=== PATIENT | female | born 1975 | race African-American/Black ===

== ENCOUNTER 2017-06-17 08:23 | Inpatient (IN) ==
[2017-06-17] MEDS ORDERED: ALBUTEROL 2.5 MG/3 ML NEB RESP TX PRN (09:44)
[2017-06-17] MEDS ORDERED: ONDANSETRON 4 MG/2 ML VIAL IV PRN (09:44)
[2017-06-17] MEDS ORDERED: SODIUM CHLORIDE 0.45% 1,000 ML IV SCH (10:00)
[2017-06-17] MEDS ORDERED: PANTOPRAZOLE 40 MG VIAL IV SCH (10:00)
[2017-06-17] MEDS ORDERED: CIPROFLOXACIN INJ 400 MG in PREMIX 1 EACH IV SCH (12:00)
[2017-06-17] MEDS ORDERED: HEPARIN 5,000 UNIT/1 ML VIAL IV ONE (12:29)
[2017-06-17] MEDS ORDERED: niCARdipine INJ 25 MG in SODIUM CHLORIDE 0.9% 240 ML IV SCH (13:30)
[2017-06-17 16:56] VITALS: BP 143/95
== END 2017-06-17 14:45 | disposition hospice, home (50) | DRG 45 ==
LOC: EDUNIT# → EDBD → N.ED 08:23 → N.EDINP 09:02 → SUATTDRO 09:02 → N.CC 10:35
PROVIDERS: ADMIT Internal Medicine; ATTEND Hospitalist

== ENCOUNTER 2017-06-28 18:30 | Inpatient (IN) ==
[2017-06-29] MEDS ORDERED: ACETAMINOPHEN 325 MG TABLET PO PRN (16:27)
[2017-06-29] MEDS ORDERED: ONDANSETRON 4 MG/2 ML VIAL IV PRN (16:27)
[2017-06-29 17:07] LABS: Basophils # 0.1 10*3/uL (0.0-0.2); Basophils % 0.4 % (0.0-0.8); Eosinophils % 0.2 % (0.00-10.9); Hematocrit 29.9 VOL% (35.7-47.0); Hemoglobin 10.3 GM/DL (12.0-16.0); Immature Granulocytes % 0.6 %; Immature Granulocytes Absolute 0.07 #; Lymphocytes # 1.3 10*3/uL (1.4-4.0); Lymphocytes % 11.2 % (21.3-54.2); Mean Corpuscular HGB Conc 34.4 GM/DL (32-36); Mean Corpuscular Hemoglobin 28 PG (27-34); Mean Corpuscular Volume 80.6 FL (87-102); Mean Platelet Volume 12.6 FL (9.6-12.0); Monocytes % 8.7 % (1.7-12.7); Neutrophils # 9.1 10*3/uL (1.4-7.4); Neutrophils % 78.9 % (38.7-73.9); Platelet Count 384 T/CUMM (130-400); Red Blood Count 3.71 MC/CUMM (3.8-5.5); Red Cell Distribution Width 12.8 % (9.3-17.3); White Blood Count 11.6 T/CUMM (4-12)
[2017-06-29 17:31] LABS: Calcium 8.8 MG/DL (8.5-10.1); Osmolality,Calculated 272.8 MOS/KG (273-304); Potassium 4.3 MMOL/L (3.5-5.1)
[2017-06-29 17:34] LABS: Risk Ratio 3.41; VLDL CHOLESTEROL 13.2 MG/DL
[2017-06-29] MEDS: SODIUM CHLORIDE 0.9% 1,000 ML IV SCH (18:23)
[2017-06-30 08:17] LABS: Basophils % 0.4 % (0.0-0.8); Eosinophils % 0.1 % (0.00-10.9); Hematocrit 29.2 VOL% (35.7-47.0); Hemoglobin 10.1 GM/DL (12.0-16.0); Immature Granulocytes % 0.8 %; Immature Granulocytes Absolute 0.08 #; Lymphocytes # 1.5 10*3/uL (1.4-4.0); Mean Corpuscular HGB Conc 34.6 GM/DL (32-36); Mean Corpuscular Hemoglobin 28 PG (27-34); Mean Corpuscular Volume 80.2 FL (87-102); Mean Platelet Volume 12.7 FL (9.6-12.0); Monocytes # 0.9 10*3/uL (0.11-0.8); Monocytes % 8.5 % (1.7-12.7); Neutrophils # 7.9 10*3/uL (1.4-7.4); Neutrophils % 76.2 % (38.7-73.9); Platelet Count 400 T/CUMM (130-400); Red Blood Count 3.64 MC/CUMM (3.8-5.5); White Blood Count 10.4 T/CUMM (4-12)
[2017-06-30 08:39] LABS: Calcium 8.8 MG/DL (8.5-10.1); Osmolality,Calculated 277.5 MOS/KG (273-304); Potassium 4.2 MMOL/L (3.5-5.1)
[2017-06-30] MEDS: PANTOPRAZOLE 40 MG TABLET PO SCH (08:46)
[2017-06-30] MEDS: ASPIRIN EC 81 MG TABLET PO SCH (08:46)
[2017-06-30 08:52] LABS: Free T4 (Free Thyroxine) 1.05 NG/DL (0.76-1.46); Thyroid Stimulating Hormone 0.525 uIU/ml (0.358-3.74)
[2017-06-30] MEDS: SODIUM CHLORIDE 0.9% 1,000 ML IV SCH (16:48)
[2017-06-30] MEDS: ATORVASTATIN 40 MG TABLET PO SCH (21:44)
[2017-07-01] MEDS: ASPIRIN EC 81 MG TABLET PO SCH (08:57)
[2017-07-01] MEDS: PANTOPRAZOLE 40 MG TABLET PO SCH (08:57)
[2017-07-01] MEDS: SODIUM CHLORIDE 0.9% 1,000 ML IV SCH (11:47)
[2017-07-01] MEDS: ATORVASTATIN 40 MG TABLET PO SCH (20:38)
[2017-07-02 05:35] LABS: Basophils % 0.4 % (0.0-0.8); Eosinophils % 0.2 % (0.00-10.9); Hematocrit 29.5 VOL% (35.7-47.0); Hemoglobin 9.9 GM/DL (12.0-16.0); Immature Granulocytes % 0.3 %; Immature Granulocytes Absolute 0.03 #; Lymphocytes # 1.2 10*3/uL (1.4-4.0); Lymphocytes % 11.7 % (21.3-54.2); Mean Corpuscular HGB Conc 33.6 GM/DL (32-36); Mean Corpuscular Hemoglobin 27 PG (27-34); Mean Corpuscular Volume 81.3 FL (87-102); Mean Platelet Volume 12.9 FL (9.6-12.0); Monocytes # 0.7 10*3/uL (0.11-0.8); Monocytes % 7.1 % (1.7-12.7); Neutrophils # 7.9 10*3/uL (1.4-7.4); Neutrophils % 80.3 % (38.7-73.9); Platelet Count 469 T/CUMM (130-400); Red Blood Count 3.63 MC/CUMM (3.8-5.5); Red Cell Distribution Width 12.9 % (9.3-17.3); White Blood Count 9.8 T/CUMM (4-12)
[2017-07-02 06:07] LABS: Calcium 8.6 MG/DL (8.5-10.1); Osmolality,Calculated 273.8 MOS/KG (273-304); Potassium 4.4 MMOL/L (3.5-5.1)
[2017-07-02 06:10] LABS: Magnesium 1.9 MG/DL (1.8-2.4); Phosphorous 3.3 MG/DL (2.5-4.9); Prealbumin 14.4 MG/DL (20-40)
[2017-07-02] MEDS: PANTOPRAZOLE 40 MG TABLET PO SCH (08:57)
[2017-07-02] MEDS: ASPIRIN EC 81 MG TABLET PO SCH (08:57)
[2017-07-02] MEDS: SODIUM CHLORIDE 0.9% 1,000 ML IV SCH (08:57)
[2017-07-02 12:10] VITALS: BP 121/92
== END 2017-07-02 14:54 | DRG 45 ==
LOC: SUATTDRO 06-29 15:21 → N.2E 06-29 15:21
PROVIDERS: ADMIT Hospitalist; ATTEND Internal Medicine